=== PATIENT | female | born 1930 | race Caucasian/White ===

== ENCOUNTER 2017-09-21 16:40 | Emergency (ER) | payer MEDICARE, MEDICAID ==
[2017-09-21 16:57] VITALS: TEMP 98.1
[2017-09-21 17:31] VITALS: RESP 18
--- NOTE | 2017-09-21 17:33 | ED PDOC ---
Arrival/HPI - General Chief Complaint: Abdominal Pain Time Seen by Provider: 09/21/17 16:41 Historian: Patient, Family - History of Present Illness Narrative History of Present Illness (Text): you were treated in the ED today for nausea with abdomen epigastric pain for about 1 day but otherwise without any vomiting/headache/dizziness/difficulty breathing/chest pain/numbness/tingling/loss of limb function/pain with urination. 09/21/17 17:28 Time/Duration: 24 hours Symptom Onset: Gradual Symptom Course: Unchanged Quality: Aching Severity Level: 2 Activities at Onset: Rest Context: Sitting Past Medical History - Provider Review Nursing Documentation Reviewed: Yes - Travel History Have you recently traveled outside [place] w/in the past 3 mons?: No - Cardiac Hx Cardiac Disorders: Yes Hx Hypertension: Yes - Pulmonary Hx Respiratory Disorders: No - Neurological Hx Neurological Disorder: No - HEENT Hx HEENT Disorder: No - Renal Hx Renal Disorder: No - Endocrine/Metabolic Hx Endocrine Disorders: No - Hematological/Oncological Hx Blood Disorders: No - Integumentary Hx Dermatological Disorder: No - Musculoskeletal/Rheumatological Hx Musculoskeletal Disorders: Yes Hx Arthritis: Yes - Gastrointestinal Hx Gastrointestinal Disorders: Yes Other/Comment: ABD PAIN - Genitourinary/Gynecological Hx Genitourinary Disorders: No - Psychiatric Hx Psychophysiologic Disorder: No Hx Substance Use: No - Surgical History Hx Cholecystectomy: Yes Hx Orthopedic Surgery: Yes (L SHOULDER) Family/Social History - Physician Review Nursing Documentation Reviewed: Yes Family/Social History: No Known Family HX Smoking Status: Never Smoked Hx Alcohol Use: No Hx Substance Use: No Allergies/Home Meds Allergies/Adverse Reactions: Allergies sulfamethoxazole [From Bactrim] Allergy (Verified 09/21/17 16:51) RASH trimethoprim [From Bactrim] Allergy (Verified 09/21/17 16:51) RASH Home Medications: Home Meds Medication Instructions Recorded Confirmed Valsartan/Hydrochlorothiazide 1 tab PO DAILY 04/11/14 09/21/17 [Valsartan and Hydrochlorothiazide 12.5 mg-320] Mag Hydrox/Aluminum Hyd/Simeth 30 ml PO Q8 PRN 09/21/17 09/21/17 [Antacid Anti-Gas Liquid] Ranitidine HCl [Zantac] 150 mg PO BID 09/21/17 09/21/17 Review of Systems - Review of Systems Constitutional: Normal Eyes: Normal ENT: Normal Respiratory: Normal Cardiovascular: Normal Gastrointestinal: Abdominal Pain, Nausea Genitourinary Female: Normal Musculoskeletal: Normal Skin: Normal Neurological: Normal Endocrine: Normal Hemo/Lymphatic: Normal Psychiatric: Normal Physical Exam Vital Signs Reviewed: Yes Vital Signs Temp Pulse Resp BP Pulse Ox 09/21/17 21:38 53 L 18 139/70 98 09/21/17 18:51 59 L 18 136/59 L 98 09/21/17 17:30 58 L 18 138/61 98 09/21/17 16:51 98.1 F 54 L 16 142/64 98 Temperature: Afebrile Blood Pressure: Hypertensive Pulse: Regular Respiratory Rate: Normal Appearance: Positive for: Well-Appearing, Non-Toxic, Uncomfortable Pain Distress: None Mental Status: Positive for: Alert and Oriented X 3 - Systems Exam Head: Present: Atraumatic, Normocephalic Pupils: Present: PERRL Extroacular Muscles: Present: EOMI Conjunctiva: Present: Normal Ears: Present: Normal Mouth: Present: Moist Mucous Membranes Pharnyx: Present: Normal Nose (External): Present: Atraumatic Nose (Internal): Present: Normal Inspection Neck: Present: Normal Range of Motion Respiratory/Chest: Present: Clear to Auscultation, Good Air Exchange Cardiovascular: Present: Regular Rate and Rhythm Abdomen: Present: Tenderness, Other (epigastric discomfort) Back: Present: Normal Inspection Upper Extremity: Present: Normal Inspection Lower Extremity: Present: Normal Inspection Neurological: Present: GCS=15, CN II-XII Intact, Speech Normal, Motor Func Grossly Intact Skin: Present: Warm, Normal Color Psychiatric: Present: Alert, Oriented x 3, Normal Insight, Normal Concentration Medical Decision Making ED Course and Treatment: you were treated in the ED today for nausea with abdomen epigastric pain for about 1 day but otherwise without any vomiting/headache/dizziness/difficulty breathing/chest pain/numbness/tingling/loss of limb function/pain with urination. You were otherwise breathing easily, pink moist lips, talking with your daughter easily, good strength/sensation, alert/oriented, walking easily, clear lungs, mild epigastric abdomen tenderness, no fever temp 98.1, stable heart rate 54, stable breathing rate 16, excellent oxygen level 98% room air, elevated blood pressure 142/64 which we recommend repeat in 2-3 days primary care office to determine further treatment, you have blood tests no infection count 7, stable blood level hemoglobin 9.4/platelets 298, stable chemistry, lipase normal 72, heart blood test negative, radiology ct abdomen/pelvis pending but you didn't want to wait for results and cautioned for missed diagnosis/complications/, ECG sinus bradycardia, protonix/intravenous fluids, observation done in the ED with improvement, counselled to to wait for CT abdomen/pelvis results, further observation/care and you didn't want to and cautioned for missed diagnosis/complications/ and you went home with daughter. 1. Recommend continue your home anti-acid medication that you said you have. 2. Recommend follow-up primary care tomorrow to review symptoms, referral to gastroenterology clinic. 4. If any worsening pain, fever, chills, nausea, vomiting, difficulty breathing, numbness, loss of limb function, pain with urination or any medical condition then return to the ED. 09/21/17 17:36 09/21/17 18:25 09/21/17 18:26 09/21/17 23:24 09/21/17 23:28 Reassessment Condition: Re-examined, Improved - Lab Interpretations Lab Results: 09/21/17 17:30 09/21/17 17:30 Lab Results 09/21/17 17:30: Sodium 134, Potassium 3.6, Chloride 98, Carbon Dioxide 29, Anion Gap 11, BUN 19, Creatinine 0.7, Est GFR ( Amer) > 60, Est GFR (Non- Af Amer) > 60, Random Glucose 103, Calcium 9.6, Total Bilirubin 0.3, AST 26, ALT 27, Alkaline Phosphatase 78, Troponin I < 0.01, Total Protein 7.1, Albumin 3.6, Globulin 3.5, Albumin/Globulin Ratio 1.0 L, Lipase 72 09/21/17 17:30: PT 11.5, INR 1.01, APTT 28.4 09/21/17 17:30: WBC 7.4, RBC 3.43 L, Hgb 9.5 L, Hct 30.0 L, MCV 87.5, MCH 27.7, MCHC 31.7, RDW 18.2 H, Plt Count 298, MPV 10.1, Gran % 72.0 H, Lymph % (Auto) 19.2 L, [place] % (Auto) 5.4, Eos % (Auto) 3.0, Baso % (Auto) 0.4, Gran # 5.34, Lymph # (Auto) 1.4, [place] # (Auto) 0.4, Eos # (Auto) 0.2, Baso # (Auto) 0.03 I have reviewed the lab results: Yes - RAD Interpretation Radiology Orders: 09/21/17 18:26 ABD & PELVIS IV CONTRAST ONLY [CT] Stat - EKG Interpretation Interpreted by ED Physician: Yes (sinus bradycardia) Type: 12 lead EKG - Medication Orders Current Medication Orders: Discontinued Medications Acetaminophen (Tylenol 325mg Tab) 975 mg PO STAT STA Stop: 09/21/17 17:28 Last Admin: 09/21/17 18:14 Dose: 975 mg Ondansetron HCl (Zofran Inj) 4 mg IVP STAT STA Stop: 09/21/17 17:26 Last Admin: 09/21/17 18:15 Dose: 4 mg IVP Administration Document 09/21/17 18:15 HI (Rec: 09/21/17 18:15 HI [id number]) Charges for Administration # of IVP Administrations 1 Pantoprazole Sodium (Protonix Inj) 40 mg IVP STAT STA Stop: 09/21/17 17:26 Last Admin: 09/21/17 18:15 Dose: 40 mg IVP Administration Document 09/21/17 18:15 HI (Rec: 09/21/17 18:15 HI [id number]) Charges for Administration # of IVP Administrations 1 Disposition/Present on Arrival - Present on Arrival Any Indicators Present on Arrival: No History of DVT/PE: No History of Uncontrolled Diabetes: No Urinary Catheter: No History of Decub. Ulcer: No History Surgical Site Infection Following: None - Disposition Have Diagnosis and Disposition been Completed?: Yes Diagnosis: Gastritis Disposition: AGAINST MEDICAL ADVICE Disposition Time: 23:28 Patient Plan: Discharge Patient Problems: Current Active Problems Problem Status Onset Gastritis Acute Condition: IMPROVED Discharge Instructions (ExitCare): Gastritis (DC) Additional Instructions: you were treated in the ED today for nausea with abdomen epigastric pain for about 1 day but otherwise without any vomiting/headache/dizziness/difficulty breathing/chest pain/numbness/tingling/loss of limb function/pain with urination. You were otherwise breathing easily, pink moist lips, talking with your daughter easily, good strength/sensation, alert/oriented, walking easily, clear lungs, mild epigastric abdomen tenderness, no fever temp 98.1, stable heart rate 54, stable breathing rate 16, excellent oxygen level 98% room air, elevated blood pressure 142/64 which we recommend repeat in 2-3 days primary care office to determine further treatment, you have blood tests no infection count 7, stable blood level hemoglobin 9.4/platelets 298, stable chemistry, lipase normal 72, heart blood test negative, radiology ct abdomen/pelvis pending but you didn't want to wait for results and cautioned for missed diagnosis/complications/, ECG sinus bradycardia, protonix/intravenous fluids, observation done in the ED with improvement, counselled to to wait for CT abdomen/pelvis results, further observation/care and you didn't want to and cautioned for missed diagnosis/complications/ and you went home with daughter. 1. Recommend continue your home anti-acid medication that you said you have. 2. Recommend follow-up primary care tomorrow to review symptoms, referral to gastroenterology clinic. 4. If any worsening pain, fever, chills, nausea, vomiting, difficulty breathing, numbness, loss of limb function, pain with urination or any medical condition then return to the ED. Referrals: Jeremiah Guadarrama Jr., MD [Primary Care Provider] - Follow up with primary Forms: [employer] ([place])
[2017-09-21 18:04] LABS: BASO # 0.03 K/mm3 (0.0-2.0); BASO % 0.4 % (0.0-3.0); EOS # 0.2 (0.0-0.7); GRAN # 5.34 (1.4-6.5); HEMOGLOBIN 9.5 g/dL (12.0-16.0); LYMPH # 1.4 (1.2-3.4); LYMPH % 19.2 % (22.0-35.0); MEAN CELL VOLUME 87.5 fl (80.0-105.0); MEAN CORPUSCULAR HEMOGLOBIN 27.7 pg (25.0-35.0); MEAN CORPUSCULAR HGB CONC 31.7 g/dl (31.0-37.0); MEAN PLATELET VOLUME 10.1 fl (7.0-11.0); MONO # 0.4 (0.1-0.6); MONO % 5.4 % (1.0-6.0); RBC 3.43 10^6/uL (3.5-6.1); RED CELL DISTRIBUTION WIDTH 18.2 % (11.5-14.5); WHITE BLOOD COUNT 7.4 10^3/ul (4.5-11.0)
[2017-09-21 18:10] LABS: INR 1.01 (0.93-1.08); PARTIAL THROMBOPLASTIN TIME 28.4 Seconds (25.1-36.5); PROTHROMBIN TIME 11.5 SECONDS (9.4-12.5)
[2017-09-21 18:15] LABS: ALBUMIN 3.6 g/dL (3.0-4.8); ALT/SGPT 27 U/L (7-56); AST/SGOT 26 U/L (14-36); BLOOD UREA NITROGEN 19 mg/dL (7-21); CALCIUM 9.6 mg/dL (8.4-10.5); GFR AFRICAN-AMERICAN > 60; GFR NON-AFRICAN AMERICAN > 60; LIPASE 72 U/L (23-300)
[2017-09-21 18:27] LABS: TROPONIN I < 0.01 ng/mL
[2017-09-21] MEDS ORDERED: Iohexol 350 MG/100 ML VIAL ONE (20:40)
--- NOTE | 2017-09-21 22:10 | CT ---
EXAM: CT Abdomen and Pelvis With Intravenous Contrast EXAM DATE/TIME: 09/21/2017 6:26 PM CLINICAL HISTORY: 87 years old, female; Pain; Abdominal pain; Acute; Additional info: 87yof, abdomen pain TECHNIQUE: Axial computed tomography images of the abdomen and pelvis with intravenous contrast. All CT scans at this facility use one or more dose reduction techniques, viz.: automated exposure control; ma/kV adjustment per patient size (including targeted exams where dose is matched to indication; i.e. head); or iterative reconstruction technique. Coronal and sagittal reformatted images were created and reviewed. CONTRAST: 100 mL of OMNI 350 administered intravenously. COMPARISON: There are no prior studies for comparison. FINDINGS: Lower thorax: The heart is enlarged.There is calcification of the mitral annulus. There is interstitial and airspace disease at the lung bases. There are no definite effusions. There is a small hiatal hernia ABDOMEN: Liver: There is fatty infiltration of the liver. Gallbladder and bile ducts: Gallbladder is poorly visualized and maybe absent. Common duct is dilated. There is mild intrahepatic biliary ductal dilatation Pancreas: Pancreas is mildly atrophic. Spleen: unremarkable Adrenals: Right adrenal is unremarkable. There is nodular thickening of the left adrenal. Kidneys and ureters: There is a left renal cyst. There are additional low attenuation left renal lesions too small to characterize. There is bilateral renal scarring. There are extrarenal pelves bilaterally. There is no ureterectasis. Stomach and bowel: Stomach is almost completely empty. Rotation is normal. Small bowel is mildly distended with fluid and air. There is no obstruction. Terminal ileum is distended with air. Appendix is not visualized. There is no pericecal inflammation. The there is moderate stool in the colon. There is sigmoid diverticulosis. Appendix: See stomach and bowel PELVIS: Bladder: unremarkable Reproductive: Uterus is atrophic. Adnexa are unremarkable. ABDOMEN and PELVIS: Intraperitoneal space: There is no free air or free fluid. Bones/joints: Bony structures are osteopenic. There are degenerative changes. There is mild compression deformity of L4. There is anterolisthesis L5 on S1 with posterior disc bulging. Soft tissues: There is a small fat containing umbilical hernia. Vasculature: Aorta is ectatic. There are atherosclerotic calcifications. Lymph nodes: There is no pathologic adenopathy. IMPRESSION: Bilateral interstitial disease with right lower lobe airspace disease, pneumonia and/or atelectasis; cardiomegaly and atherosclerotic disease; dilated ducts status post cholecystectomy; fatty liver; constipation; diverticulosis without CT findings of diverticulitis Additional nonemergent findings as described above.
[2017-09-21 23:52] VITALS: BP 132/87; PULSE 56; O2SAT 97
--- NOTE | 2017-09-22 08:26 | CARD ---
APPROVED REPORT EKG Measurement Heart [id number] <Conclusion> Sinus bradycardia with 1st degree AV block Left bundle branch block Abnormal ECG
== END 2017-09-21 23:52 | disposition left against medical advice (07) ==
LOC: ED 16:40
DX: K29.70 Gastritis, unspecified, without bleeding (principal); I10 Essential (primary) hypertension
CPT/HCPCS: 74177; 80053; 83690; 84484; 85025; 85610; 85730; 93005; 96374; 96375; 99285; C9113; J2405; Q9967